=== PATIENT | male | born 1995 | race African-American/Black ===

== ENCOUNTER 2022-02-27 20:02 | Emergency (ER) | payer BC ==
[~2022-02-27] VITALS: Ht 177.8 cm; Wt 97.5 kg
[2022-02-27 20:05] VITALS: BP 150/73
--- NOTE | 2022-02-27 20:11 | NUR ---
Patient ambulated to bed 9.
--- NOTE | 2022-02-27 20:56 | NUR ---
DR SANTIAGO AT BEDSIDE EXAMINING PT
--- NOTE | 2022-02-27 20:57 | NUR ---
26 Y/O MALE BIBS FROM HOME, C/O LACERATION TO LEFT FOREARM EARLIER TODAY. PT STATES THAT HE WAS DOING SOME YARD WORK AND CUT HIS ARM. BLEEDING CONTROLLED, 2 INCH SUPERFICIAL LACERATION. A/OX4, UNLABORED BREATHING, AMBULATORY WITHOUT ASSISTANCE. DENIES HX/RX NKA
[2022-02-27] MEDS ORDERED: IBUP-2213 PO (21:11)
--- NOTE | 2022-02-27 21:17 | NUR ---
Patient discharged with v/s stable. Written and verbal after care instructions given and explained. Patient alert, oriented and verbalized understanding of instructions. Ambulatory with steady gait. All questions addressed prior to discharge. ID band removed. Patient advised to follow up with PMD. Rx of IBUPROFEN given. Patient educated on indication of medication including possible reaction and side effects. Opportunity to ask questions provided and answered. VSS, A/OX4, UNLABORED BREATHING, AMBULATORY, AND CALM DEMEANOR.
[2022-02-27 21:18] VITALS: BP 142/70
== END 2022-02-27 21:17 | disposition home or self-care (01) ==
LOC: MED 20:02
DX: S51.812A Laceration without foreign body of left forearm, initial encounter (principal); W26.8XXA Contact with other sharp object(s), not elsewhere classified, initial encounter; Y93.89 Activity, other specified; Y92.89 Other specified places as the place of occurrence of the external cause; Y99.8 Other external cause status
CPT/HCPCS: 90471; 90715; 99283